=== PATIENT | female | born 1980 | race Hispanic/Latino ===

== ENCOUNTER 2025-04-18 06:08 | Day surgery (SDC) | payer OTHER ==
[~2025-04-18] VITALS: Ht 162.6 cm; Wt 115.7 kg
[2025-04-18] VITALS (10 sets, daily range): BP systolic 96–120; BP diastolic 55–73; PULSE 60–96; RESP 15–18; TEMP 97–98.1
[~2025-04-18 06:08] MED LIST: CELE-125 PO; KETO10TA2 PO; LOSA1TAB37 PO; MELA10TA3 PO; UPAD15TA PO
[2025-04-18] MEDS: 0.9%NACL 1000ML 1,000 ML IV ONE (07:13)
[2025-04-18] MEDS ORDERED: LIDOCAINE PF 100MG/5ML (2%) SYRINGE 5ML ONE (10:43)
--- NOTE | 2025-04-18 12:10 | NUR ---
PT AND FATHER GIVEN VERBAL AND WRITTEN DISCHARGE INSTRUCTIONS. IV REMOVED SITE ASYMPTOMATIC. PT TAKEN OUT VIA WHEELCHAIR FATHER DRIVING
== END 2025-04-18 12:10 | disposition home or self-care (01) ==
LOC: ENDO 06:08 → DAH 06:08 → ENDO 12:10
PROVIDERS: ATTEND Surgery
DX: R12 Heartburn (principal); K29.50 Unspecified chronic gastritis without bleeding; K44.9 Diaphragmatic hernia without obstruction or gangrene; K21.00 Gastro-esophageal reflux disease with esophagitis, without bleeding; K31.89 Other diseases of stomach and duodenum; I10 Essential (primary) hypertension; M19.90 Unspecified osteoarthritis, unspecified site; E66.01 Morbid (severe) obesity due to excess calories; Z68.42 Body mass index [BMI] 45.0-49.9, adult; Z98.84 Bariatric surgery status
CPT/HCPCS: 81025; 43239; J7030 ×2; J2003; J2704; A4620; A4215 ×2; A4223; A4657; A7002; A4222; A4221; A4663; A4606; J3490